=== PATIENT | female | born 1940 | race Caucasian/White ===

== ENCOUNTER → 2018-11-08 | Outpatient (CLI) | payer OTHER ==
[~2018-11-08] MED LIST: DIPH50 PO; Ferrous Sulfat325 MG PO; Flecainide Ace150 MG PO; GABA300 PO; IRON TAB PO; LISHYD2025 PO; Omeprazole20 M1 PO; PROC5 PO; PROLIA60 MG/1 ML SQ; WARF2.5 PO; WARF5 PO
== END | disposition home or self-care (01) ==
LOC: PLD 11:34 → LAB SHORT 11:34
DX: D22.5 Melanocytic nevi of trunk (principal); D22.39 Melanocytic nevi of other parts of face
CPT/HCPCS: 88305

== ENCOUNTER 2020-06-10 10:32 | Inpatient (IN) | payer OTHER ==
[~2020-06-10] VITALS: Ht 162.6 cm; Wt 58.3 kg
[~2020-06-10 10:32] MED LIST changes: -WARF5 PO
[2020-06-10 10:56] LABS: BASOPHILS ABSOLUTE AUTO 0.03 K/mm3 (0.00-0.23); BASOPHILS PERCENT AUTO 1 % (0-2); EOSINOPHILS ABSOLUTE AUTO 0.08 K/mm3 (0.00-0.68); EOSINOPHILS PERCENT AUTO 1 % (0-6); Hematocrit 34.1 % (33.0-51.0); Hemoglobin 10.4 g/dL (11.5-16.0); IMMATURE GRAN ABSOLUTE AUTO 0.02 K/mm3 (0.00-0.10); IMMATURE GRAN PERCENT AUTO 0 % (0-1); LYMPHOCYTES ABSOLUTE AUTO 3.27 K/mm3 (0.84-5.20); LYMPHOCYTES PERCENT AUTO 53 % (21-46); MONOCYTES ABSOLUTE AUTO 0.48 K/mm3 (0.16-1.47); MONOCYTES PERCENT AUTO 8 % (4-13); Mean Corpuscular HGB 32.5 pg (26.0-34.0); Mean Corpuscular HGB Conc 30.5 g/dL (31.5-36.5); Mean Corpuscular Volume 107 fL (80-100); NEUTROPHILS ABSOLUTE AUTO 2.33 K/mm3 (1.96-9.15); NEUTROPHILS PERCENT AUTO 38 % (41-73); Platelet Count 212 K/mm3 (150-400); RDW Coefficient Variation 13.9 % (11.7-14.2); RDW Standard Deviation 54.7 fL (35.1-46.3); White Blood Cell Count 6.21 K/mm3 (4.00-11.30)
[2020-06-10 11:10] LABS: International Normalized Ratio 2.19; Prothrombin Time Results 22.4 Sec (9.7-11.5)
[2020-06-10 11:13] LABS: Alanine Aminotransfer (ALT/SGP 18 U/L (12-78); Albumin, Blood 2.7 g/dL (3.4-5.0); Albumin/Globulin Ratio 0.6 (0.8-1.8); Alk Phos 67 U/L (50-136); Anion Gap 10 mmol/L (6-16); Aspartate Aminotrans (AST/SGOT 53 U/L (12-37); Bilirubin, Total 0.3 mg/dL (0.1-1.0); Blood Urea Nitrogen 23 mg/dL (8-24); Bun/Creatinine Ratio 17.4 (12.0-20.0); CO2, Blood 20 mmol/L (21-32); Calcium, Blood 8.1 mg/dL (8.5-10.1); Chloride, Blood 109 mmol/L (98-108); Creatinine, Blood 1.32 mg/dL (0.40-1.00); Globulin, Blood 4.7 g/dL (2.2-4.0); Glomerular Filtration Rate 41 (60-); Glucose, Blood 236 mg/dL (70-99); Magnesium, Blood 2.3 mg/dL (1.6-2.4); Potassium, Blood 4.4 mmol/L (3.5-5.5); Sodium, Blood 139 mmol/L (136-145); Total Protein, Blood 7.4 g/dL (6.4-8.2); Troponin I <0.015 ng/mL (0.000-0.040)
[2020-06-10 11:35] LABS: Calcium, Ionized (POC) 1.18 mmol/L (1.10-1.46); Chloride (POC) 106 mmol/L (98-108); Creatinine (POC) 1.5 mg/dL (0.6-1.0); Glucose (ISTAT POC) 238 mg/dL (70-99); Hemoglobin (POC) 10.9 g/dL (12.0-16.0); Potassium (POC) 4.4 mmol/L (3.5-5.5); Sodium (POC) 140 mmol/L (135-148); Total CO2 (POC) 24 mmol/L (21-32)
[2020-06-10] MEDS ORDERED: AMLODIPINE BESYL5 MG PO (11:48)
[2020-06-10] MEDS ORDERED: LISI20 PO (11:48)
[2020-06-10] MEDS ORDERED: LORAZEPAM0.5 MG PO (11:49)
[2020-06-10] MEDS ORDERED: LETR2.5 PO (11:49)
[2020-06-10] MEDS ORDERED: FUROSEMIDE20 MG PO (11:49)
[2020-06-10] MEDS ORDERED: METOPROLOL TART25 MG PO (11:49)
[2020-06-10] MEDS ORDERED: PACERONE100 M1 PO (11:50)
[2020-06-10] MEDS ORDERED: OMEPRAZOLE 20 MG PO (13:20)
[2020-06-10 23:16] LABS: Influenza A, PCR Negative (NEGATIVE); Influenza B, PCR Negative (NEGATIVE); Resp Syncytial Virus, PCR Negative (NEGATIVE); SARS-Cov-2 (COVID-19) PCR, MMC Negative (NEGATIVE)
[2020-06-11 03:42] LABS: BASOPHILS PERCENT AUTO 0 % (0-2); EOSINOPHILS ABSOLUTE AUTO 0.01 K/mm3 (0.00-0.68); EOSINOPHILS PERCENT AUTO 0 % (0-6); Hematocrit 32.3 % (33.0-51.0); Hemoglobin 10.1 g/dL (11.5-16.0); IMMATURE GRAN ABSOLUTE AUTO 0.02 K/mm3 (0.00-0.10); IMMATURE GRAN PERCENT AUTO 0 % (0-1); LYMPHOCYTES ABSOLUTE AUTO 1.06 K/mm3 (0.84-5.20); LYMPHOCYTES PERCENT AUTO 16 % (21-46); MONOCYTES ABSOLUTE AUTO 0.41 K/mm3 (0.16-1.47); MONOCYTES PERCENT AUTO 6 % (4-13); Mean Corpuscular HGB 31.4 pg (26.0-34.0); Mean Corpuscular HGB Conc 31.3 g/dL (31.5-36.5); Mean Corpuscular Volume 100 fL (80-100); Mean Platelet Volume 10.8 fL (9.1-12.4); NEUTROPHILS ABSOLUTE AUTO 5.06 K/mm3 (1.96-9.15); NEUTROPHILS PERCENT AUTO 77 % (41-73); Platelet Count 166 K/mm3 (150-400); RDW Standard Deviation 51.9 fL (35.1-46.3); Red Blood Cell Count 3.22 M/mm3 (3.80-5.20); White Blood Cell Count 6.56 K/mm3 (4.00-11.30)
[2020-06-11 03:57] LABS: International Normalized Ratio 2.27; Prothrombin Time Results 23.2 Sec (9.7-11.5)
[2020-06-11 04:00] LABS: Albumin, Blood 2.7 g/dL (3.4-5.0); Albumin/Globulin Ratio 0.5 (0.8-1.8); Bilirubin, Total 0.6 mg/dL (0.1-1.0); Bun/Creatinine Ratio 14.5 (12.0-20.0); Calcium, Blood 8.2 mg/dL (8.5-10.1); Creatinine, Blood 1.17 mg/dL (0.40-1.00); Magnesium, Blood 1.8 mg/dL (1.6-2.4); Phosphorus, Blood 2.9 mg/dL (2.5-4.9); Potassium, Blood 3.4 mmol/L (3.5-5.5); Total Protein, Blood 7.7 g/dL (6.4-8.2)
[2020-06-11 11:10] LABS: Prothrombin Time Results 20.6 Sec (9.7-11.5)
[2020-06-12 05:42] LABS: International Normalized Ratio 1.2; Prothrombin Time Results 12.7 Sec (9.7-11.5)
[2020-06-12] MEDS ORDERED: WARF5 PO (11:37)
[2020-06-12] MEDS ORDERED: Norco 5-325 Ta1 EACH PO (12:29)
== END 2020-06-12 12:55 | disposition home or self-care (01) | DRG 242 ==
LOC: ER 10:32 → PCU 12:00 → ICUW 12:00 → PCU 06-11 17:25
PROVIDERS: Emergency Medicine; Internal Medicine Cardiovascular Disease; ADMIT Family Medicine
PROC: 5A1223Z Performance of Cardiac Pacing, Continuous (ICD-10-PCS; principal; 2020-06-10)
PROC: 5A1935Z Respiratory Ventilation, Less than 24 Consecutive Hours (ICD-10-PCS; 2020-06-10)
PROC: 0JH606Z Insertion of Pacemaker, Dual Chamber into Chest Subcutaneous Tissue and Fascia, Open Approach (ICD-10-PCS; 2020-06-11)
PROC: 02H63JZ Insertion of Pacemaker Lead into Right Atrium, Percutaneous Approach (ICD-10-PCS; 2020-06-11)
PROC: 02HK3JZ Insertion of Pacemaker Lead into Right Ventricle, Percutaneous Approach (ICD-10-PCS; 2020-06-11)
PROC: 5A2204Z Restoration of Cardiac Rhythm, Single (ICD-10-PCS; 2020-06-11)
DX: I44.2 Atrioventricular block, complete (principal); R57.0 Cardiogenic shock; I13.0 Hypertensive heart and chronic kidney disease with heart failure and stage 1 through stage 4 chronic kidney disease, or unspecified chronic kidney disease; Z79.01 Long term (current) use of anticoagulants; I47.1 Supraventricular tachycardia; N18.30 Chronic kidney disease, stage 3 unspecified; I08.3 Combined rheumatic disorders of mitral, aortic and tricuspid valves; I27.20 Pulmonary hypertension, unspecified; I48.0 Paroxysmal atrial fibrillation; I25.10 Atherosclerotic heart disease of native coronary artery without angina pectoris; J44.9 Chronic obstructive pulmonary disease, unspecified; Z20.828 Contact with and (suspected) exposure to other viral communicable diseases; W18.30XA Fall on same level, unspecified, initial encounter; Y93.9 Activity, unspecified; Y92.9 Unspecified place or not applicable; S09.90XA Unspecified injury of head, initial encounter; Z78.1 Physical restraint status
CPT/HCPCS: 0241U; 31500; 31720; 33208; 33210; 36415; 51702; 70450; 71045; 71046; 72125; 76937; 80047; 80053; 82947; 83735; 84100; 84484; 85014; 85025; 85610; 93005; 93010; 93308; 93321; 94002; 99152; 99153; 99285-25; A9270; C1781; C1785; C1894; C1898; C9113; J0461; J1265; J1644; J2250; J2704; J3010; J3370; J3430; J7040; J7120

== ENCOUNTER → 2021-06-28 | Outpatient (CLI) | payer OTHER ==
[~2021-06-28] MED LIST changes: +AMLODIPINE BESYL5 MG PO; +FUROSEMIDE20 MG PO; +LETR2.5 PO; +LISI20 PO; +LORAZEPAM0.5 MG PO; +METOPROLOL TART25 MG PO; +Norco 5-325 Ta1 EACH PO; +OMEPRAZOLE 20 MG PO; +PACERONE100 M1 PO; +WARF5 PO
[2021-06-28 15:05] LABS: Source, Urine Clean Catch
[2021-06-28 15:45] LABS: Appearance, Urine Clear (Clear); Bilirubin, Urine Neg (Neg); Blood, Urine Neg (Neg); Color, Urine Yellow (P-Yellow); Glucose Qualitative, Urine Neg (Neg); Ketones, Urine Neg (Neg); Leukocyte Esterase, Urine 3+ (Neg); Nitrite, Urine Neg (Neg); Protein, Urine Neg (Neg); Urobilinogen, Urine NORM (Normal)
[2021-06-28 15:59] LABS: Bacteria Few /hpf; Mucus Light (0-Heavy); Red Blood Cells, Urine 0-2 /hpf (0-2); Squamous Epithelial Cells Mod /hpf (Few)
[2021-06-28 16:32] LABS: Creatinine, Urine Random 35.4 mg/dL (27.00-270.00); Protein, Urine Random 7.2 mg/dL (0.0-11.9); Protein/Creat Ratio, Ur Random 0.2
== END ==
LOC: LAB SHORT 15:02
PROVIDERS: Internal Medicine Nephrology
DX: N18.32 Chronic kidney disease, stage 3b (principal)
CPT/HCPCS: 81001; 82570; 84156

== ENCOUNTER → 2022-02-21 | Outpatient (CLI) | payer OTHER ==
[2022-02-21 11:33] LABS: Calcium, Urine 5.8 mg/dL (< 17.5); Calcium, Urine Calculation 52.2 mg/24hrs (42.0-353.0)
[2022-02-21 11:36] LABS: Creatinine Urine 51.4 mg/dL (27.00-270.00)
[2022-02-21 11:41] LABS: Microalb/Creat Ratio UR, Rand Unable to Calculate mg/g (0.000-30.000); Microalbumin, Random Urine <5.000 mg/L (0.000-20.000)
== END | disposition home or self-care (01) ==
LOC: LAB SHORT 09:35 → LAB 09:35
PROVIDERS: Internal Medicine Endocrinology, Diabetes & Metabolism; Physician Assistant
DX: N18.31 Chronic kidney disease, stage 3a (principal); M81.0 Age-related osteoporosis without current pathological fracture
CPT/HCPCS: 81050; 82043; 82340; 82570

== ENCOUNTER 2022-07-29 09:01 | Day surgery (SDC) | payer OTHER ==
[~2022-07-29 09:01] MED LIST changes: +FERSU300 PO; +POTCHL20ER PO; +RISE35 PO; +Vitamin D1000 UNI1 PO; +XARELTO15 M1 PO
--- NOTE | 2022-07-29 10:17 | NUR ---
09 JOIE ARRIVED AND WAS BROUGHT TO THE PROCEDURE ROOM, PLACED ON THE MONITOR AND FOUND TO BE IN SINUS RHYTHM. PACER INTERROGATION PERFORMED AND [address] JAVED AND ANESTHESIA AT THE BEDSIDE AND DCCV WAS CANCELLED AND DR. JAVED SPOKE WITH THE PATIENT AND DAUGHTER AT LENGTH REGARDING MEDICATION RECONCILIATION AND FOLLOW UP APPOINTMENT IN THE PACER CLINIC AND CARDIOLOGY OFFICE IN OCT, 2022. DISCAHRGE INSTRUCTIONS REVIEWED WITH THE PATIENT AND COPIES GIVEIN TO THE PATIENT AND THE PATIENT WAS DISCHARGED HOME.
== END 2022-07-29 22:41 | disposition home or self-care (01) ==
LOC: MHTC 09:01
DX: I48.0 Paroxysmal atrial fibrillation (principal); I25.10 Atherosclerotic heart disease of native coronary artery without angina pectoris; I08.3 Combined rheumatic disorders of mitral, aortic and tricuspid valves; I13.0 Hypertensive heart and chronic kidney disease with heart failure and stage 1 through stage 4 chronic kidney disease, or unspecified chronic kidney disease; I50.33 Acute on chronic diastolic (congestive) heart failure; N18.9 Chronic kidney disease, unspecified; I27.20 Pulmonary hypertension, unspecified; D64.9 Anemia, unspecified; D47.2 Monoclonal gammopathy; I44.2 Atrioventricular block, complete; Z79.899 Other long term (current) drug therapy; Z79.01 Long term (current) use of anticoagulants; Z88.1 Allergy status to other antibiotic agents; Z88.0 Allergy status to penicillin; Z88.2 Allergy status to sulfonamides; Z88.8 Allergy status to other drugs, medicaments and biological substances; Z95.0 Presence of cardiac pacemaker
CPT/HCPCS: 93005; 93010

== ENCOUNTER → 2022-08-29 | Outpatient (CLI) | payer OTHER | END | disposition home or self-care (01) | LOC: LAB SHORT 09:22 → LAB 09:22 | DX: M62.81 Muscle weakness (generalized) (principal) | CPT/HCPCS: 36415; 84443 ==

== ENCOUNTER → 2023-03-23 | Outpatient (CLI) | payer OTHER ==
[2023-03-23 14:43] LABS: Protein, Urine Random 23.4 mg/dL (0.0-11.9); Protein/Creat Ratio, Ur Random 0.2
== END ==
LOC: LAB 12:10 → LAB SHORT 12:10
PROVIDERS: Internal Medicine Nephrology
DX: N18.32 Chronic kidney disease, stage 3b (principal)
CPT/HCPCS: 82570; 84156

== ENCOUNTER → 2025-04-28 | Outpatient (CLI) | payer OTHER ==
[~2025-04-28] MED LIST changes: +ACYCLOVIR400 MG PO; +DEXA4 PO; +Velcade3.5 MG UD
[2025-04-28 11:30] LABS: Anion Gap 9.0 mmol/L (3-11); Blood Urea Nitrogen 30.0 mg/dL (8-24); CO2, Blood 31.0 mmol/L (21-32); Calcium, Blood 8.8 mg/dL (8.5-10.1); Chloride, Blood 98.0 mmol/L (98-108); Creatinine, Blood 1.01 mg/dL (0.40-1.00); Glucose, Blood 91.0 mg/dL (70-99); Potassium, Blood 3.6 mmol/L (3.5-5.5); Sodium, Blood 134.0 mmol/L (136-145)
== END ==
LOC: LAB 10:26 → LAB SHORT 10:26
PROVIDERS: Internal Medicine
DX: N18.30 Chronic kidney disease, stage 3 unspecified (principal); I50.30 Unspecified diastolic (congestive) heart failure
CPT/HCPCS: 80048